=== PATIENT | female | born 1980 | race Two or more races ===

== ENCOUNTER 2018-08-27 06:24 | Emergency (ER) | payer OTHER ==
[~2018-08-27] VITALS: Ht 167.6 cm; Wt 81.6 kg
[2018-08-27] MEDS ORDERED: SODIUM CHLORIDE 0.9% 1,000 ML IV ONE (08:03)
[2018-08-27] MEDS ORDERED: PROMETHAZINE HCL 25 MG/ML 1ML IV ONE ×2 (08:15→12:15)
[2018-08-27 09:23] LABS: Basophils # (auto) 0 uL; Basophils % (auto) 0.1 % (0.0-2.0); Eosinophils # (auto) 0 uL; Hematocrit 42.4 % (36.0-46.0); Hemoglobin 14.1 g/dL (12.2-16.2); Lymphocytes # (auto) 0.6 uL; Mean Corpuscular Hemoglobin 28.7 pg (28.0-32.0); Mean Corpuscular Hgb Conc. 33.4 g/dL (32.0-36.0); Mean Corpuscular Volume 85.9 fL (80.0-100.0); Monocytes # (auto) 0.5 uL; Monocytes % (auto) 5.1 % (0.0-12.0); Neutrophils # (auto) 8.2 uL; Neutrophils % (auto) 88.8 % (37.0-80.0); Platelet Count (auto) 186 10^3/uL (140-450); Red Blood Cells 4.93 10^6/uL (4.0-5.20); Red Cell Distribution Width 13.5 % (11.8-14.3); White Blood Cell 9.3 10^3/uL (4.4-10.8)
[2018-08-27 09:44] LABS: Urine Bacteria FEW /hpf (None Seen); Urine Blood Negative /uL (Negative); Urine Hyaline Cast FEW /lpf (0 - 2); Urine Mucus FEW (None Seen); Urine Specific Gravity 1.016 (1.001-1.035); Urine WBC 3 /hpf (0 - 5)
[2018-08-27 09:54] LABS: Albumin 3.2 g/dL (3.4-5.0); Calcium 7.9 mg/dL (8.5-10.1); Magnesium 1.8 mg/dL (1.6-2.6); Potassium 3.8 mmol/L (3.5-5.1)
[2018-08-27 09:56] LABS: BUN/Creatinine Ratio 15.2
[2018-08-27 09:58] LABS: Bilirubin, Total 0.6 mg/dL (0.2-1.0); Total Protein 6.6 g/dL (6.4-8.2)
[2018-08-27 12:14] VITALS: BP 126/69
[2018-08-27] MEDS ORDERED: NALBUPHINE HCL 10 MG/1ml INJECTION IV ONE (12:15)
== END 2018-08-27 13:22 | disposition home or self-care (01) ==
LOC: ER 06:25
DX: A05.9 Bacterial foodborne intoxication, unspecified (principal); E86.0 Dehydration; E11.9 Type 2 diabetes mellitus without complications; E46 Unspecified protein-calorie malnutrition; I48.91 Unspecified atrial fibrillation; Z98.51 Tubal ligation status
CPT/HCPCS: 36415; 80053; 81001; 83036; 83735; 84702; 85025; 93005; 96361; 96374; 96375; 96376; 99284; J2300; J2550; J7030